=== PATIENT | female | born 1935 | race Caucasian/White ===

== ENCOUNTER → 2022-04-25 13:08 | Outpatient (BNVA) | payer MEDICARE, SELFPAY | PROVIDERS: PCP Physician Assistant Medical; Visit Provider Nurse Practitioner Family | DX: H91.90 Unspecified hearing loss, unspecified ear (principal); R41.89 Other symptoms and signs involving cognitive functions and awareness; R41.3 Other amnesia | CPT/HCPCS: 99202 ==

== ENCOUNTER → 2022-07-25 14:06 | Outpatient (BNVA) | payer MEDICARE, SELFPAY | PROVIDERS: PCP Physician Assistant Medical; Visit Provider Nurse Practitioner Family | DX: R41.81 Age-related cognitive decline (principal); R41.3 Other amnesia; H91.90 Unspecified hearing loss, unspecified ear | CPT/HCPCS: 99212 ==

== ENCOUNTER 2022-11-14 11:06 | Outpatient (AMB) | payer MEDICARE, SELFPAY ==
--- NOTE | 2022-11-14 11:07 | A.OFFVIS_ITS ---
Intake Vital Signs 11/14/22 11:21 Weight 158 lb 6 oz BP 118/58 L Blood Pressure Location Lt brachial Position Sitting Pulse 65 Pulse Source Pulse Oximeter Pulse Oximetry (%) 98 Oxygen Delivery Method Room Air Intake Visit Reasons: medication follow up - LVM Intake Note: Medication follow up [employer] [place] Required: No Allergies No Known Allergies Allergy (Verified 11/14/22 11:09) HPI HPI Comments History of Present Illness Details 87 y/o female patient presents with her son for follow up of cognitive impairment and hearing loss. Pt's son reports that patient has been sleeping a lot, about 16-18 hours a day. Pt's son thinks that she has been sleep more since memantine started and holding memantine since the last . Pt's son reports that patient wakes up frequently at night. Pt has appointment to fit for hearing aids next week. She is not physically active during time, very anxious for any outside activity. She is very weak and need assistance to walk, uses walker. Memory is still same, forgetful. Denies wondering or behavior problem. [facility] Surgical History History of cataract surgery Family History Family/Other HTN (hypertension) Family/Other Breast cancer HTN (hypertension) Thyroid disease Family/Other Uterine cancer Father Throat cancer Social History (Updated 11/14/22 @ 11:21 by Maude Boyce [facility]) Alcohol intake: never Patient Tobacco Use Status: Never used Tobacco Review of Systems Const All systems reviewed & are unremarkable except as noted in HPI and below Physical Exam Vital Signs: Last Vital Signs Pulse 65 11/14/22 11:21 BP 118/58 L 11/14/22 11:21 Pulse Ox 98 11/14/22 11:21 Oxygen Delivery Method Room Air 11/14/22 11:21 Const General: alert Nutritional Appearance: average body habitus Orientation/consciousness: patient oriented x3 HEENT Other: Hearing loss and uses hearing aids bilaterally. Neck Neck: Yes full ROM and Yes supple Resp Effort & Inspection: normal respiratory effort and able to speak in complete sentences Neuro General: patient oriented x3 Cranial nerves: Yes Bilaterally intact EOM present, Yes Midline tongue present, Yes Symmetric palate elevation present, Yes Ability to bilaterally rotate head present and Yes Ability to bilaterally elevate shoulders present Motor exam (neuro): 5/5 motor strength present throughout and Pronator motor function not present Psych Appearance: grossly normal Mental Status: mental status grossly normal Speech and movement: Clear speech present Affect: normal affect Attitude: cooperative Assessment & Plan Assessment & Plan (1) Weakness of lower extremity: Code(s): R29.898 - Other symptoms and signs involving the musculoskeletal system (2) Excessive daytime sleepiness: Code(s): G47.19 - Other hypersomnia (3) Memory loss: Code(s): R41.3 - Other amnesia (4) Cognitive decline: Code(s): R41.89 - Other symptoms and signs involving cognitive functions and awareness Plan Advised patient to undergo home sleep study to assess sleep apnea. Will f/u of sleep study for appropriate treatment options. Advised patient to do physical therapy for bilateral legs strength and gait tra ining. Continue to hold memantine and monitoring daytime sleepiness. Encouraged patient to increase daytime physical and cognitive activities. Orders: Orders RT home sleep study 11/14/22 R41.3 - Other amnesia, R41.89 - Other symptoms and signs involving cognitive functions and awareness, G47.19 - Other hypersomnia PT Evaluation and Treatment 11/14/22 R29.898 - Other symptoms and signs involving the musculoskeletal system Coding Level of Care Code Est Pt Level 4 (82902) Diagnoses Weakness of lower extremity R29.898 Excessive daytime sleepiness G47.19 Memory loss R41.3 Cognitive decline R41.89
[2022-11-14 11:21] VITALS: BP 118/58; PULSE 65; O2SAT 98
== END 2022-11-14 11:51 | disposition home or self-care (01) ==
PROVIDERS: PCP Physician Assistant Medical; Visit Provider Nurse Practitioner Family
DX: R29.898 Other symptoms and signs involving the musculoskeletal system (principal); G47.19 Other hypersomnia; R41.3 Other amnesia; R41.89 Other symptoms and signs involving cognitive functions and awareness
CPT/HCPCS: 99214

== ENCOUNTER → 2022-11-14 11:06 | Outpatient (BNVA) | payer MEDICARE, SELFPAY | PROVIDERS: PCP Physician Assistant Medical; Visit Provider Nurse Practitioner Family | DX: G47.19 Other hypersomnia (principal); R41.3 Other amnesia; R41.89 Other symptoms and signs involving cognitive functions and awareness; R29.898 Other symptoms and signs involving the musculoskeletal system | CPT/HCPCS: 99212 ==

== ENCOUNTER 2023-02-20 14:29 | Outpatient (AMB) | payer MEDICARE, SELFPAY ==
[2023-02-20 14:31] VITALS: BP 118/82; PULSE 66; O2SAT 98; BMI 27.4
--- NOTE | 2023-02-20 14:31 | A.OFFVIS_ITS ---
Intake Vital Signs 02/20/23 14:31 Height 5 ft 4 in Weight 159 lb 6 oz BMI 27.4 BP 118/82 Blood Pressure Location Lt brachial Position Sitting Pulse 66 Pulse Source Pulse Oximeter Pulse Oximetry (%) 98 Oxygen Delivery Method Room Air Intake Visit Reasons: medication follow up-LVM Intake Note: Pt presents to the office today for a medication follow up. Allergies No Known Allergies Allergy (Verified 02/20/23 14:35) HPI HPI Comments History of Present Illness Details 88 y/o female patient presents with her son for follow up of cognitive impairment and hearing loss. Pt's son reports that patient had staring episode and went to ER on Dec,. She had Covid and admitted hospital for a week. She was in rehab until end of December, had OT, PT and ST. Pt's son states that patient's cognitive function has greatly improved after PT, OT and ST. She still has home therapy once a week. She had new hearing aids, and she is more alert and reactive. Pt tried memantine but it caused her very sleepy and not tolerated well. She stop taking memantine and she is more alert and less sleepy during daytime. However, she still has disrupted and restless night sleep. Pt's son reports that patient wakes up frequently at night to go to bathroom. She takes a nap after breakfast, for an hour. Home sleep study ordered, but done yet. Denies wondering or behavior problem. [facility] Surgical History History of cataract surgery Family History Family/Other HTN (hypertension) Family/Other Breast cancer HTN (hypertension) Thyroid disease Family/Other Uterine cancer Father Throat cancer Social History Alcohol intake: never Patient Tobacco Use Status: Never used Tobacco Review of Systems Const All systems reviewed & are unremarkable except as noted in HPI and below Physical Exam Vital Signs: Last Vital Signs Pulse 66 02/20/23 14:31 BP 118/82 02/20/23 14:31 Pulse Ox 98 02/20/23 14:31 Oxygen Delivery Method Room Air 02/20/23 14:31 BMI result Body Mass Index 27.4 Const General: alert Nutritional Appearance: average body habitus Orientation/consciousness: patient oriented x3 HEENT Other: Hearing loss and uses hearing aids bilaterally. Neck Neck: Yes full ROM and Yes supple Resp Effort & Inspection: normal respiratory effort and able to speak in complete sentences Neuro General: patient oriented x3 Cranial nerves: Yes Bilaterally intact EOM present, Yes Midline tongue present, Yes Symmetric palate elevation present, Yes Ability to bilaterally rotate head present and Yes Ability to bilaterally elevate shoulders present Motor exam (neuro): 5/5 motor strength present throughout and Pronator motor function not present Psych Appearance: grossly normal Mental Status: mental status grossly normal Speech and movement: Clear speech present Affect: normal affect Attitude: cooperative Assessment & Plan Assessment & Plan (1) Excessive daytime sleepiness: Code(s): G47.19 - Other hypersomnia (2) Memory loss: Code(s): R41.3 - Other amnesia (3) Cognitive decline: Code(s): R41.89 - Other symptoms and signs involving cognitive functions and awareness Plan Advised patient to undergo home sleep study to assess sleep apnea. Will f/u of sleep study for appropriate treatment options. Continue to do home PT, OT and ST. Encouraged patient to increase daytime physical and cognitive activities. Coding Level of Care Code Est Pt Level 4 (28672) Diagnoses Excessive daytime sleepiness G47.19 Memory loss R41.3 Cognitive decline R41.89
== END 2023-02-20 15:10 | disposition home or self-care (01) ==
PROVIDERS: PCP Physician Assistant Medical; Visit Provider Nurse Practitioner Family
DX: G47.19 Other hypersomnia (principal); R41.3 Other amnesia; R41.89 Other symptoms and signs involving cognitive functions and awareness
CPT/HCPCS: 99214

== ENCOUNTER → 2023-02-20 14:29 | Outpatient (BNVA) | payer MEDICARE, SELFPAY | PROVIDERS: PCP Physician Assistant Medical; Visit Provider Nurse Practitioner Family | DX: G47.19 Other hypersomnia (principal); R41.3 Other amnesia; R41.89 Other symptoms and signs involving cognitive functions and awareness | CPT/HCPCS: 99212 ==

== ENCOUNTER 2023-08-16 13:28 | Outpatient (AMB) | payer MEDICARE, SELFPAY ==
--- NOTE | 2023-08-16 13:45 | A.OFFVIS_ITS ---
Vital Signs 08/16/23 13:56 Height 5 ft 4 in Weight 160 lb 6 oz BMI 27.5 BP 118/80 Blood Pressure Location Lt brachial Position Sitting Pulse 79 Pulse Source Pulse Oximeter Pulse Oximetry (%) 96 Oxygen Delivery Method Room Air Intake Visit Reasons: Hospital Follow up - Confirmed Intake Note: Patient presents for f/u. Looking to see if pt. has Parkinson s or Dementia. Allergies No Known Allergies Allergy (Verified 08/16/23 13:53) Medication List - Last Reconciled 08/16/23 by Fide Hughes MD amlodipine 10 mg PO DAILY ascorbate calcium (vitamin C) 500 mg PO DAILY aspirin (Adult Low Dose Aspirin) 81 mg PO DAILY cholecalciferol (vitamin D3) 25 mcg PO DAILY cyanocobalamin (vitamin B-12) 500 mcg PO DAILY gabapentin 100 mg PO ONCE losartan mg PO melatonin 1 mg PO BEDTIME PRN metoprolol succinate ER 50 mg PO DAILY olanzapine 2.5 mg PO BEDTIME omega-3 fatty acids 1,000 mg PO DAILY pantoprazole 40 mg PO DAILY simvastatin 5 mg PO DAILY venlafaxine ER 150 mg PO DAILY vitamin B complex 1 tab PO DAILY HPI Comments Details: 88 y/o female patient with Dementia and catatonic depression comes for follow up.s he was recently admitted at [facility] for increased hallucinations - all her labs were unremarakable . Her psychiatrist Dr. Joseph decreased her olanzapine 2.5mg qd Her cognition is worse and is more dependant on her ADLS. Pt tried memantine but it caused her very sleepy and not tolerated well. [facility] Medical History Hyperlipidemia HTN (hypertension) Anxiety CVA (cerebral vascular accident) Major depressive disorder, recurrent, with catatonic features Dementia Surgical History History of cataract surgery Family History Family/Other HTN (hypertension) Family/Other Breast cancer HTN (hypertension) Thyroid disease Family/Other Uterine cancer Father Throat cancer Social History Alcohol intake: never Patient Tobacco Use Status: Never used Tobacco Review of Systems Neuro Reports confusion Psych Reports confusion Physical Exam Vital Signs: Last Vital Signs Pulse 79 08/16/23 13:56 BP 118/80 08/16/23 13:56 Pulse Ox 96 08/16/23 13:56 Oxygen Delivery Method Room Air 08/16/23 13:56 BMI result Body Mass Index 27.5 Const General: cooperative, alert and confusion Nutritional Appearance: average body habitus Orientation/consciousness: confusion HEENT Other: Hearing loss and uses hearing aids bilaterally. Neck Neck: Yes full ROM and Yes supple Resp Effort & Inspection: normal respiratory effort and able to speak in complete sentences Neuro Other: No tremors Mild decreased facial expression and blink General: confusion Cranial nerves: Yes Bilaterally intact EOM present, Yes Midline tongue present, Yes Symmetric palate elevation present, Yes Ability to bilaterally rotate head present and Yes Ability to bilaterally elevate shoulders present Motor exam (neuro): 5/5 motor strength present throughout, Pronator motor function not present and Normal motor muscle tone present throughout Psych Appearance: grossly normal Speech and movement: Clear speech present Affect: Blunted affect present Attitude: cooperative Orientation What is the (year) (season) (date) (day) (month)?: year, season, date and month Score Score: 4 Assessment & Plan Assessment & Plan (1) Dementia: Comment: mixed with hallucinations- related to mood and vascular Code(s): F03.90 - Unspecified dementia, unspecified severity, without behavioral disturbance, psychotic disturbance, mood disturbance, and anxiety Category: Medical Plan F/u Dr. Joseph for her depression and hallucinations continue same meds will consider adding donepezil Continue [facility]NA servcies Coding Level of Care Code Est Pt Level 4 (44603) Diagnoses Dementia F03.90
[2023-08-16 13:56] VITALS: BP 118/80; PULSE 79; O2SAT 96; BMI 27.5
== END 2023-08-16 14:40 | disposition home or self-care (01) ==
PROVIDERS: PCP Physician Assistant Medical; Visit Provider Psychiatry & Neurology Neurology
DX: F03.90 Unspecified dementia, unspecified severity, without behavioral disturbance, psychotic disturbance, mood disturbance, and anxiety (principal)
CPT/HCPCS: 99214

== ENCOUNTER → 2023-08-16 13:28 | Outpatient (BNVA) | payer MEDICARE, SELFPAY | PROVIDERS: PCP Physician Assistant Medical; Visit Provider Psychiatry & Neurology Neurology | DX: F03.90 Unspecified dementia, unspecified severity, without behavioral disturbance, psychotic disturbance, mood disturbance, and anxiety (principal) | CPT/HCPCS: 99212 ==

== ENCOUNTER 2024-01-21 14:43 | Outpatient (AMB) | payer MEDICARE, SELFPAY ==
[2024-01-21 14:43] VITALS: BP 115/62; PULSE 62; O2SAT 96; BMI 27.5
--- NOTE | 2024-01-21 14:43 | MHC.OFFVIS ---
Vital Signs 01/21/24 14:43 Height 5 ft 4 in Weight 160 lb BMI 27.5 BP 115/62 Blood Pressure Location Rt brachial Position Sitting Pulse 62 Pulse Source Pulse Oximeter Pulse Oximetry (%) 96 Oxygen Delivery Method Room Air Intake Visit Reasons: Follow up [employer] Required: No Accompanied by: Child Allergies No Known Allergies Allergy (Verified 01/21/24 14:50) Medication List - Last Reconciled 01/21/24 by Fide Hughes MD amlodipine 10 mg PO DAILY ascorbate calcium (vitamin C) 500 mg PO DAILY aspirin (Adult Low Dose Aspirin) 81 mg PO DAILY cholecalciferol (vitamin D3) 25 mcg PO DAILY cyanocobalamin (vitamin B-12) 500 mcg PO DAILY gabapentin 300 mg (3 x 100 mg) PO .qhs losartan mg PO melatonin 1 mg PO BEDTIME PRN metoprolol succinate ER 50 mg PO DAILY olanzapine 2.5 mg PO BEDTIME omega-3 fatty acids 1,000 mg PO DAILY pantoprazole 40 mg PO DAILY simvastatin 5 mg PO DAILY venlafaxine ER 150 mg PO DAILY vitamin B complex 1 tab PO DAILY Do you need a note to return to daycare/school/sports/work: No HPI Comments Details: 88 y/o female patient with Dementia and catatonic depression comes for follow up.she had another admission in Aug 2023 and went to ER 3 weeks ago.Both the ER visits were freezing episodes, unresponsive to commands. she had 2 episodes of generalized body movements last week when she was sleepy.she was confused and not responding. Her cognition has worsened and is confused with people. she has more hallucinations, dependant on all actvities of daily living. Pt tried memantine but it caused her very sleepy and not tolerated well. she did good after her discharge from her admission in August 2023. she follows up with [facility], [facility] Medical History (Updated 01/21/24 @ 15:30 by Fide Hughes MD) Myoclonus Episode of shaking Hyperlipidemia HTN (hypertension) Anxiety CVA (cerebral vascular accident) Major depressive disorder, recurrent, with catatonic features Dementia Surgical History History of cataract surgery Family History Family/Other HTN (hypertension) Family/Other Breast cancer HTN (hypertension) Thyroid disease Family/Other Uterine cancer Father Throat cancer Social History Alcohol intake: never Patient Tobacco Use Status: Never used Tobacco Review of Systems Neuro Reports confusion Psych Reports confusion Physical Exam Vital Signs: Last Vital Signs Pulse 62 01/21/24 14:43 BP 115/62 01/21/24 14:43 Pulse Ox 96 01/21/24 14:43 Oxygen Delivery Method Room Air 01/21/24 14:43 BMI result Body Mass Index 27.5 Const General: cooperative, alert and confusion Nutritional Appearance: average body habitus Orientation/consciousness: confusion HEENT Other: Hearing loss and uses hearing aids bilaterally. Neck Neck: Yes full ROM and Yes supple Resp Effort & Inspection: normal respiratory effort and able to speak in complete sentences Neuro Other: No tremors Mild decreased facial expression and blink General: confusion Cranial nerves: Yes Bilaterally intact EOM present, Yes Midline tongue present, Yes Symmetric palate elevation present, Yes Ability to bilaterally rotate head present and Yes Ability to bilaterally elevate shoulders present Motor exam (neuro): 5/5 motor strength present throughout, Pronator motor function not present and Normal motor muscle tone present throughout Psych Appearance: grossly normal Speech and movement: Clear speech present Affect: Blunted affect present Attitude: cooperative Assessment & Plan Assessment & Plan (1) Dementia: Comment: mixed with hallucinations- related to mood and vascular Code(s): F03.90 - Unspecified dementia, unspecified severity, without behavioral disturbance, psychotic disturbance, mood disturbance, and anxiety Category: Medical Qualifiers: Dementia type: unspecified type Dementia severity: severe Dementia behavioral or psychological symptom: with psychotic disturbance Qualified Code(s): F03.C2 - Unspecified dementia, severe, 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 Joseph for her depression and hallucinations EEG Increase gabapentin 300mg qhs for abnormal movements - ? myoclonus ? seizures Refer to [facility] for Palliative care Orders: Orders EEG electroencephalogram Today R25.1 - Tremor, unspecified [facility]errals [facility] Referral F03.90 - Unspecified dementia, unspecified severity, without behavioral disturbance, psychotic disturbance, mood disturbance, and anxiety Medications: Changed From gabapentin 100 mg PO ONCE To gabapentin 300 mg (3 x 100 mg) PO .qhs 90 caps 0RF Coding Level of Care Code Est Pt Level 4 (76398) Complex EM visit Add On G2211 Diagnoses Severe dementia with psychotic disturbance, unspecified dementia type F03.C2 Dementia type: unspecified type Dementia severity: severe Dementia behavioral or psychological symptom: with psychotic disturbance Myoclonus G25.3 Comment CC notes to Dr. Joseph
== END 2024-01-21 15:29 | disposition home or self-care (01) ==
LOC: HO.HSMS 14:43
PROVIDERS: Visit Provider Psychiatry & Neurology Neurology
DX: F03.C2 Unspecified dementia, severe, with psychotic disturbance (principal); G25.3 Myoclonus
CPT/HCPCS: 99214; G2211

== ENCOUNTER → 2024-01-21 14:43 | Outpatient (BNVA) | payer MEDICARE, SELFPAY | PROVIDERS: Visit Provider Psychiatry & Neurology Neurology | DX: F03.C2 Unspecified dementia, severe, with psychotic disturbance (principal); G25.3 Myoclonus | CPT/HCPCS: 99212 ==

== ENCOUNTER → 2024-02-27 15:34 | Outpatient (BNVA) | payer MEDICARE, SELFPAY | PROVIDERS: PCP Internal Medicine; Visit Provider Psychiatry & Neurology Neurology | DX: F03.90 Unspecified dementia, unspecified severity, without behavioral disturbance, psychotic disturbance, mood disturbance, and anxiety (principal) ==

== ENCOUNTER 2024-02-27 15:36 | Outpatient (AMB) | payer MEDICARE, SELFPAY ==
--- NOTE | 2024-02-27 15:34 | MHC.OFFVIS ---
Intake Visit Reasons: follow up ([phone]) Intake Note: Patient presents for follow up Allergies No Known Allergies Allergy (Verified 02/27/24 15:36) HPI Comments Details: 89 y/o female patient with Dementia and catatonic depression calls for follow up.Her Dylon helps with history today. Her psychiatrist ( Dr. Joseph) reduced olanzepine dose but her mood worsened so it was increased again.she is on gabapentin which helps with her abnormal twitching but she is sleeping a lot. Her cognition is good as per her .she gonzales [employer] aid eto help with her ADLs. Pt tried memantine but it caused her very sleepy and not tolerated well. [facility] Medical History Myoclonus Episode of shaking Hyperlipidemia HTN (hypertension) Anxiety CVA (cerebral vascular accident) Major depressive disorder, recurrent, with catatonic features Dementia Surgical History History of cataract surgery Family History Family/Other HTN (hypertension) Family/Other Breast cancer HTN (hypertension) Thyroid disease Family/Other Uterine cancer Father Throat cancer Social History Alcohol intake: never Patient Tobacco Use Status: Never used Tobacco Physical Exam Neuro Other: Alert speech - mild slurring Mild confusion Telehealth Telehealth Telehealth Platform: Telephone Location of provider rendering services: practice address Location of patient: address on file Patient Identification confirmed using: Name, : Yes Telehealth method: voice only Patient verbally consented to treatment: Yes Patient verbally consented to billing insurance company: Yes Patient informed of any privacy concerns related to visit: Yes Minutes spent on Phone/Video with Pt.: 16 Assessment & Plan Assessment & Plan (1) Dementia: Comment: mixed with hallucinations- related to mood and vascular Code(s): F03.90 - Unspecified dementia, unspecified severity, without behavioral disturbance, psychotic disturbance, mood disturbance, and anxiety Category: Medical Qualifiers: Dementia type: unspecified type Dementia severity: severe Dementia behavioral or psychological symptom: with psychotic disturbance Qualified Code(s): F03.C2 - Unspecified dementia, severe, 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 Joseph for her depression and hallucinations Continue gabapentin 300mg qhs for abnormal movements - ? myoclonus ? seizures [facility]NA for Palliative care F/u as needed Coding Level of Care Code Tele Est Pt Level 4 (42010) Diagnoses Severe dementia with psychotic disturbance, unspecified dementia type F03.C2 Dementia type: unspecified type Dementia severity: severe Dementia behavioral or psychological symptom: with psychotic disturbance Myoclonus G25.3
--- OUTSIDE RECORDS SUMMARY | 2024-03-04 04:20 | XMS_ITS | Clinical Summary ---
Author Organization Unknown Care Team Providers Care Log Turner Name Role Phone MINERVA KERN, COLUMBA Unavailable Unav ailable WHITE RN, YENIFER Unavailable Unavailable YVETTE EYELET MAKER, NEGIN Unavailable Unavailginna CHANDRA PT, PATRICIA Unavailable Unavailable GARCIA [employer], [facility] Unavailable Unavailable [place]AN OT, LEONARDO Unavailable Unavailable CONDINO DIANE/CUEVAS, KYREE Unavailable Unav ailable Payers Payer Name Policy Type Policy Number Effective Date Expira tion Date MEDICARE.NGS.PDGM [id number] Problems Condition Name Condition Details Condition Category Status Onset Date Resolution Date Last Treatment Date Treating Clinician Comments HYPERTENSIVE CHRONIC KIDNEY DISEASE W STG 1-4/UNSP CHR KDNY Active 10-19 00:00: 00 CHRONIC KIDNEY DISEASE, STAGE 3B Active 10-19 00:00: 00 PARKINSON'S DIS W/O DYSKINESIA, 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 10-19 00:00: 00 DEM IN OTHER DIS CLASSD ELSWHR, UNSP SEVERITY, WITH ANXIETY Active 10-19 00:00: 00 DEM IN OTH DIS CLASSD ELSWHR, UNSP SEV, WITH OTH BEH DISTRB Active 10-19 00:00: 00 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 10-19 00:00: 00 VASCULAR DEMENTIA, UNSPECIFIED SEVERITY, WITH ANXIETY Active 10-19 00:00: 00 VASCULAR DEMENTIA, UNSP SEVERITY, WITH OTHER BEH DISTURB Active 10-19 00:00: 00 OBSTRUCTIVE SLEEP APNEA (ADULT) (PEDIATRIC) Active 10-19 00:00: 00 HYPERSOMNIA, UNSPECIFIED Active 10-19 00:00: 00 METABOLIC ENCEPHALOPAT HY Active 10-14 00:00: 00 ATHSCL HEART DISEASE OF [place] CORONARY ARTERY W/O ANG PCTRS Active 10-19 00:00: 00 POLYNEUROPAT HY, UNSPECIFIED Active 10-19 00:00: 00 ANEMIA IN CHRONIC KIDNEY DISEASE Active 10-19 00:00: 00 AGE-RELATED OSTEOPOROSIS W/O CURRENT PATHOLOGICAL FRACTURE Active 10-19 00:00: 00 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 10-19 00:00: 00 PERIPHERAL VASCULAR DISEASE, UNSPECIFIED Active 10-19 00:00: 00 CONSTIPATION , UNSPECIFIED Active 10-19 00:00: 00 ACUTE KIDNEY FAILURE, UNSPECIFIED Active 10-19 00:00: 00 HYPERLIPIDEM IA, UNSPECIFIED Active 10-19 00:00: 00 GASTRO-ESOPH AGEAL REFLUX DISEASE WITHOUT ESOPHAGITIS Active 10-19 00:00: 00 VITAMIN B12 DEFICIENCY ANEMIA, UNSPECIFIED Active 10-19 00:00: 00 MENIERE'S DISEASE, UNSPECIFIED EAR Active 10-19 00:00: 00 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 Active 10-19 00:00: 00 PERSONAL HISTORY OF OTHER MALIGNANT NEOPLASM OF SKIN Active 10-19 00:00: 00 Allergies, Adverse Reactions, Alerts Allergy Name Allergy Type Status Severity Reaction(s) Onset Date Inactive Date Treating Clinician Comments ARIPIPRAZOLE Propensity to adverse reactions Active 10-14 13:43: 10 HYDROCHLOROT HIAZIDE Propensity to adverse reactions Active 10-14 13:43: 20 VALPROIC ACID Propensity to adverse reactions Active 10-14 13:43: 27 SULFA (SULFONAMIDE S) Propensity to adverse reactions Active 10-14 13:43: 32 Medications Ordered Medication Name Filled Medication Name Start Date Stop Date Current Medication? Ordering Clinician Indication Dosage Frequency Signature (SIG) Comments Components metoprolol succinate ER 50 mg tablet,exte nded release 24 hr 2022-03 0-11 00:00: 00 06-12 23:59 :00 No [id number] BETA ANNA Per instruc tions EVERY Per instructio ns EVERY (route: oral) Med Classific ation: Cardiovas cular Therapy Agents amlodipine 10 mg tablet 2022-03 00:00: 00 06-12 23:59 :00 No [id number] HTN 1 tablet DAILY 1 tablet DAILY (route: oral) Med Classific ation: Cardiovas cular Therapy Agents ascorbic acid (vitamin C) 500 mg capsule 2022-03 00:00: 00 06-12 23:59 :00 No [id number] VITAMIN 1 capsule DAILY 1 capsule DAILY (route: oral) Med Classific ation: Electroly te Balance-N utritiona l Products aspirin 81 mg tablet,aydee yed release 2022-03 00:00: 00 06-12 23:59 :00 No [id number] ANTIPLATELE T 1 tablet DAILY 1 tablet DAILY (route: oral) Med Classific ation: Hematolog ical Agents Colace 100 mg capsule 2022-03 00:00: 00 06-12 23:59 :00 No [id number] CONSTIPATIO N 1 capsule DAILY 1 capsule DAILY (route: oral) Med Classific ation: Gastroint estinal Therapy Agents gabapentin 100 mg capsule 2022-03 00:00: 00 06-12 23:59 :00 No [id number] PAIN 1 capsule DAILY 1 capsule DAILY (route: oral) Med Classific ation: Central Nervous System Agents losartan 25 mg tablet 2022-03 00:00: 00 06-12 23:59 :00 No [id number] HTN 3 tablet DAILY 3 tablet DAILY (route: oral) Med Classific ation: Cardiovas cular Therapy Agents multivitami n tablet 2022-03 00:00: 00 06-12 23:59 :00 No [id number] VITAMIN 1 tablet DAILY 1 tablet DAILY (route: oral) Med Classific ation: Electroly te Balance-N utritiona l Products olanzapine 2.5 mg tablet 2022-03 00:00: 00 06-12 23:59 :00 No [id number] BEHAVIOR 1 tablet DAILY 1 tablet DAILY (route: oral) Med Classific ation: Central Nervous System Agents pantoprazol e 40 mg tablet,aydee yed release 2022-03 00:00: 00 06-12 23:59 :00 No [id number] GERD 1 tablet DAILY 1 tablet DAILY (route: oral) Med Classific ation: Gastroint estinal Therapy Agents simvastatin 10 mg tablet 2022-03 00:00: 00 06-12 23:59 :00 No [id number] HLD 1 tablet BEDTIME 1 tablet BEDTIME (route: oral) Med Classific ation: Cardiovas cular Therapy Agents venlafaxine ER 150 mg capsule,ext ended release 24 hr 2022-03 00:00: 00 06-12 23:59 :00 No [id number] NEUROPATHY 1 capsule DAILY 1 capsule DAILY (route: oral) Med Classific ation: Central Nervous System Agents Vitamin D3 25 mcg (1,000 unit) capsule 2022-03 00:00: 00 06-12 23:59 :00 No [id number] VITAMIN 1 capsule DAILY 1 capsule DAILY (route: oral) Med Classific ation: Electroly te Balance-N utritiona l Products simvastatin 10 mg tablet 2- 00:00: 00 Yes [id number] HLD 1 tablet DAILY 1 tablet DAILY (route: oral) Med Classific ation: Cardiovas cular Therapy Agents amlodipine 5 mg tablet 2- 00:00: 00 Yes [id number] HTN 2 tablet DAILY 2 tablet DAILY (route: oral) Med Classific ation: Cardiovas cular Therapy Agents acetaminoph en 325 mg tablet - 00:00: 00 Yes [id number] PAIN OR TEMP >100 2 tablet EVERY 4 HOURS 2 tablet EVERY 4 HOURS (route: oral) Med Classific ation: Analgesic , Anti-infl ammatory or Antipyret ic ascorbic acid (vitamin C) 500 mg tablet 06-17 00:00: 00 Yes [id number] SUPPLEMENT 1 tablet DAILY 1 tablet DAILY (route: oral) Med Classific ation: Electroly te Balance-N utritiona l Products Cris Low Dose Aspirin 81 mg tablet,aydee yed release 06-17 00:00: 00 Yes [id number] HEART HEALTH 1 tablet DAILY 1 tablet DAILY (route: oral) Med Classific ation: Hematolog ical Agents cholecalcif eric (vitamin D3) 25 mcg (1,000 unit) capsule 06-17 00:00: 00 Yes [id number] SUPPLEMENT 1 capsule DAILY 1 capsule DAILY (route: oral) Med Classific ation: Electroly te Balance-N utritiona l Products docusate sodium 100 mg tablet 06-17 00:00: 00 Yes [id number] CONSTIPATIO N 1 tablet DAILY 1 tablet DAILY (route: oral) Med Classific ation: Gastroint estinal Therapy Agents gabapentin 100 mg capsule 06-17 00:00: 00 Yes [id number] PAIN 1 capsule DAILY 1 capsule DAILY (route: oral) Med Classific ation: Central Nervous System Agents isosorbide mononitrate ER 60 mg tablet,exte nded release 24 hr 06-17 00:00: 00 Yes [id number] HTN 1 tablet DAILY 1 tablet DAILY (route: oral) Med Classific ation: Cardiovas cular Therapy Agents metoprolol succinate ER 25 mg tablet,exte nded release 24 hr 06-17 00:00: 00 10-16 23:59 :00 No [id number] HTN 1 tablet DAILY 1 tablet DAILY (route: oral) Med Classific ation: Cardiovas cular Therapy Agents olanzapine 2.5 mg tablet 06-17 00:00: 00 Yes [id number] ANXIETY 1 tablet DAILY 1 tablet DAILY (route: oral) Med Classific ation: Central Nervous System Agents omega-3 fatty acids 1,000 mg capsule 06-17 00:00: 00 Yes [id number] SUPPLEMENT 1 capsule DAILY 1 capsule DAILY (route: oral) Med Classific ation: Cardiovas cular Therapy Agents pantoprazol e 40 mg tablet,aydee yed release 06-17 00:00: 00 10-16 23:59 :00 No [id number] INDIGESTION 1 tablet DAILY 1 tablet DAILY (route: oral) Med Classific ation: Gastroint estinal Therapy Agents venlafaxine ER 150 mg capsule,ext ended release 24 hr 06-17 00:00: 00 Yes [id number] DEPRESSION 1 capsule DAILY 1 capsule DAILY (route: oral) Med Classific ation: Central Nervous System Agents metoprolol succinate ER 50 mg tablet,exte nded release 24 hr 10-13 00:00: 00 Yes [id number] HTN 1 tablet DAILY 1 tablet DAILY (route: oral) Med Classific ation: Cardiovas cular Therapy Agents pantoprazol e 40 mg tablet,aydee yed release 10-13 00:00: 00 Yes [id number] GERD 1 tablet DAILY 1 tablet DAILY (route: oral) Med Classific ation: Gastroint estinal Therapy Agents isosorbide mononitrate ER 60 mg tablet,exte nded release 24 hr 09-15 00:00: 00 10-16 23:59 :00 No [id number] ANGINA Per instruc tions EVERY DAY Per instructio ns EVERY DAY (route: oral) Med Classific ation: Cardiovas cular Therapy Agents losartan 25 mg tablet 10-19 00:00: 00 Yes [id number] HTN 1 tablet DAILY 1 tablet DAILY (route: oral) Med Classific ation: Cardiovas cular Therapy Agents Vital Signs Vital Name Observation Time Observation Value Commen ts Temperature 2023-12-17 09:56:00.000 97.4 [degF] Temperature 2023-12-04 11:22:00.000 97.1 [degF] Temperature 2023-11-22 11:21:00.000 97 [degF] Temperature 2023-11-20 13:24:00.000 97.5 [degF] Temperature 2023-11-14 11:00:00.000 96.9 [degF] Temperature 2023-11-12 12:12:00.000 97.2 [degF] Temperature 2023-11-11 09:50:00.000 97.2 [degF] Temperature 2023-11-07 11:58:00.000 97.1 [degF] Temperature 2023-11-05 12:59:00.000 97.9 [degF] Temperature 2023-10-30 09:59:00.000 97.5 [degF] Temperature 2023-10-28 12:00:00.000 97.3 [degF] Temperature 2023-10-28 10:30:00.000 97.2 [degF] Temperature 2023-10-23 14:59:00.000 97.1 [degF] Temperature 2023-10-22 17:05:00.000 97.4 [degF] Temperature 2023-10-22 10:10:00.000 97.5 [degF] Temperature 2023-10-20 10:38:00.000 97.2 [degF] BMI (%) 2023-10-20 10:29:08.000 28 kg/m2 Height 2023-10-20 10:29:03.000 63 [in_us] Pulse 2023-12-17 09:56:00.000 78 /min Pulse 2023-12-04 11:22:00.000 67 /min Pulse 2023-11-22 11:21:00.000 96 /min Pulse 2023-11-20 13:24:00.000 70 /min Pulse 2023-11-14 11:00:00.000 69 /min Pulse 2023-11-12 12:12:00.000 80 /min Pulse 2023-11-11 09:50:00.000 80 /min Pulse 2023-11-07 11:58:00.000 75 /min Pulse 2023-11-05 12:59:00.000 80 /min Pulse 2023-10-30 09:59:00.000 80 /min Pulse 2023-10-28 12:00:00.000 70 /min Pulse 2023-10-28 10:30:00.000 74 /min Pulse 2023-10-23 14:59:00.000 68 /min Pulse 2023-10-22 17:05:00.000 77 /min Pulse 2023-10-22 10:10:00.000 80 /min Pulse 2023-10-20 10:38:00.000 82 /min O2 Saturation (%) 2023-12-17 09:56:00.000 97 % O2 Saturation (%) 2023-12-04 11:22:00.000 97 % O2 Saturation (%) 2023-11-22 12:03:00.000 98 % O2 Saturation (%) 2023-11-22 11:21:00.000 96 % O2 Saturation (%) 2023-11-20 13:24:00.000 96 % O2 Saturation (%) 2023-11-14 11:00:00.000 96 % O2 Saturation (%) 2023-11-07 11:58:00.000 98 % O2 Saturation (%) 2023-11-05 12:59:00.000 95 % O2 Saturation (%) 2023-10-30 09:59:00.000 98 % O2 Saturation (%) 2023-10-28 12:00:00.000 96 % O2 Saturation (%) 2023-10-22 17:05:00.000 95 % O2 Saturation (%) 2023-10-22 10:10:00.000 97 % Respirations 2023-12-17 09:56:00.000 16 /min Respirations 2023-12-04 11:22:00.000 16 /min Respirations 2023-11-22 11:21:00.000 16 /min Respirations 2023-11-20 13:24:00.000 16 /min Respirations 2023-11-14 11:00:00.000 16 /min Respirations 2023-11-12 12:12:00.000 18 /min Respirations 2023-11-11 09:50:00.000 18 /min Respirations 2023-11-07 11:58:00.000 16 /min Respirations 2023-11-05 12:59:00.000 18 /min Respirations 2023-10-30 09:59:00.000 18 /min Respirations 2023-10-28 12:00:00.000 16 /min Respirations 2023-10-28 10:30:00.000 18 /min Respirations 2023-10-23 14:59:00.000 16 /min Respirations 2023-10-22 17:05:00.000 16 /min Respirations 2023-10-22 10:10:00.000 16 /min Respirations 2023-10-20 10:38:00.000 16 /min Weight (lbs) 2023-10-20 10:29:08.000 163 [lb_av] Systolic Blood Pressure 2023-12-17 09:56:00.000 110 mm [Hg] Systolic Blood Pressure 2023-12-04 11:22:00.000 110 mm [Hg] Systolic Blood Pressure 2023-11-22 11:21:00.000 120 mm [Hg] Systolic Blood Pressure 2023-11-20 13:24:00.000 140 mm [Hg] Systolic Blood Pressure 2023-11-14 11:00:00.000 110 mm [Hg] Systolic Blood Pressure 2023-11-12 12:12:00.000 102 mm [Hg] Systolic Blood Pressure 2023-11-11 09:50:00.000 110 mm [Hg] Systolic Blood Pressure 2023-11-07 11:58:00.000 110 mm [Hg] Systolic Blood Pressure 2023-11-05 12:59:00.000 120 mm [Hg] Systolic Blood Pressure 2023-10-30 09:59:00.000 130 mm [Hg] Systolic Blood Pressure 2023-10-28 12:00:00.000 120 mm [Hg] Systolic Blood Pressure 2023-10-28 10:30:00.000 126 mm [Hg] Systolic Blood Pressure 2023-10-23 14:59:00.000 120 mm [Hg] Systolic Blood Pressure 2023-10-22 17:05:00.000 139 mm [Hg] Systolic Blood Pressure 2023-10-22 10:10:00.000 140 mm [Hg] Systolic Blood Pressure 2023-10-20 10:38:00.000 118 mm [Hg] Diastolic Blood Pressure 2023-12-17 09:56:00.000 70 mm [Hg] Diastolic Blood Pressure 2023-12-04 11:22:00.000 60 mm [Hg] Diastolic Blood Pressure 2023-11-22 11:21:00.000 70 mm [Hg] Diastolic Blood Pressure 2023-11-20 13:24:00.000 70 mm [Hg] Diastolic Blood Pressure 2023-11-14 11:00:00.000 60 mm [Hg] Diastolic Blood Pressure 2023-11-12 12:12:00.000 62 mm [Hg] Diastolic Blood Pressure 2023-11-11 09:50:00.000 62 mm [Hg] Diastolic Blood Pressure 2023-11-07 11:58:00.000 78 mm [Hg] Diastolic Blood Pressure 2023-11-05 12:59:00.000 70 mm [Hg] Diastolic Blood Pressure 2023-10-30 09:59:00.000 80 mm [Hg] Diastolic Blood Pressure 2023-10-28 12:00:00.000 70 mm [Hg] Diastolic Blood Pressure 2023-10-28 10:30:00.000 62 mm [Hg] Diastolic Blood Pressure 2023-10-23 14:59:00.000 72 mm [Hg] Diastolic Blood Pressure 2023-10-22 17:05:00.000 80 mm [Hg] Diastolic Blood Pressure 2023-10-22 10:10:00.000 70 mm [Hg] Diastolic Blood Pressure 2023-10-20 10:38:00.000 64 mm [Hg] Plan of Treatment Planned Activity Planned Date Details Comments Future Scheduled Test MEDICATION MANAGEMENT; REGISTERED NURSE/LICENSED PRACTICAL NURSE TO REVIEW MEDICATIONS FOR INTERACTIONS, EFFECTIVENESS OF DRUG THERAPY, AND SIGNS/SYMPTOMS OF ADVERSE REACTIONS. MAY INSTRUCT AND REINFORCE MEDICATION TEACHING RELATED TO THE USE OF MEDICATIONS, DOSAGE, FREQUENCY, PURPOSE, SIDE EFFECTS, AND TO REPORT COMPLICATIONS. [code = MEDICATION MANAGEMENT; REGISTERED NURSE/LICENSED PRACTICAL NURSE TO REVIEW MEDICATIONS FOR INTERACTIONS, EFFECTIVENESS OF DRUG THERAPY, AND SIGNS/SYMPTOMS OF ADVERSE REACTIONS. MAY INSTRUCT AND REINFORCE MEDICATION TEACHING RELATED TO THE USE OF MEDICATIONS, DOSAGE, FREQUENCY, PURPOSE, SIDE EFFECTS, AND TO REPORT COMPLICATIONS.] Future Scheduled Test FALL REDUC TION MANAGEMENT; REGISTERED NURSE TO ASSESS AND TEACH/LICENSED PRACTICAL NURSE TO OBSERVE AND TEACH ON EDUCATION AND INTERVENTION TO IDENTIFY FALL RISK FACTORS SUCH MEDICATIONS THAT MAY CAUSE DIZZINESS, CHRONIC DISEASES, PSYCHOLOGICAL FACTORS, AND EMPOWER/EDUCATE PATIENT/CAREGIVER TO MINIMIZE FALL RISK. [code = FALL REDUCTION MANAGEMENT; REGISTERED NURSE TO ASSESS AND TEACH/LICENSED PRACTICAL NURSE TO OBSERVE AND TEACH ON EDUCATION AND INTERVENTION TO IDENTIFY FALL RISK FACTORS SUCH MEDICATIONS THAT MAY CAUSE DIZZINESS, CHRONIC DISEASES, PSYCHOLOGICAL FACTORS, AND EMPOWER/EDUCATE PATIENT/CAREGIVER TO MINIMIZE FALL RISK.] Future Scheduled Test NEUROLOGIC AL SYSTEM MANAGEMENT; REGISTERED NURSE TO ASSESS AND TEACH/LICENSED PRACTICAL NURSE TO OBSERVEAND TEACH RELATED TO ALTERED NEUROLOGICAL STATUS TO MINIMIZE COMPLICATIONS AND REDUCE HOSPITALIZATION. [code = NEUROLOGICAL SYSTEM MANAGEMENT; REGISTERED NURSE TO ASSESS AND TEACH/LICENSED PRACTICAL NURSE TO OBSERVEAND TEACH RELATED TO ALTERED NEUROLOGICAL STATUS TO MINIMIZE COMPLICATIONS AND REDUCE HOSPITALIZATION. ] Future Scheduled Test PARKINSON' S MANAGEMENT; REGISTERED NURSE/LICENSED PRACTICAL NURSE TO PROVIDE SKILLED TEACHING AND MANAGEMENT OF PARKINSON DISEASE FOR SELF-CARE. [code = PARKINSON'S MANAGEMENT; REGISTERED NURSE/LICENSED PRACTICAL NURSE TO PROVIDE SKILLED TEACHING AND MANAGEMENT OF PARKINSON DISEASE FOR SELF-CARE. ] Future Scheduled Test RN TO OBSE RVE, ASSESS, EVALUATE, AND DEVELOP AN INDIVIDUALIZED PLAN OF CARE. AGENCY MAY ACCEPT ORDERS FROM CONSULTING PHYSICIANS REGISTERED NURSETO OBSERVE AND ASSESS/LICENSED PRACTICAL NURSE TO OBSERVE FOR RISK FOR FALLS AND INSTRUCT IN FALL PREVENTION, HOME SAFETY, MEDICATION MANAGEMENT, INFECTION PREVENTION, AND NUTRITION MANAGEMENT. REGISTERED NURSE/LICENSED PRACTICAL NURSE MAY PERFORM O2 SATURATION LEVEL ON ADMISSION AND PRN FOR RESP STATUS CHANGES FOR RN TO ASSESS/EYELET MAKER TO OBSERVE PATIENT, WITH NOTIFICATION TO THE PHYSICIAN IF SATURATION IS 90% IN THE ABSENCE OF MORE SPECIFIC PARAMETERS FROM THE PHYSICIAN. AGENCY MAY PERFORM A RESUMPTION OF CARE VISIT FOLLOWING ANY HOSPITAL ADMISSION. REGISTERED NURSE/LICENSED PRACTICAL NURSE TO MONITOR CO-MORBID CONDITIONS LISTED ON THE PLAN OF CARE AND ANY NEW CONDITIONS THAT PRESENT THEMSELVES DURING THIS EPISODE TO IDENTIFY CHANGES AND INTERVENE TO MINIMIZE COMPLICATIONS. [code = RN TO OBSERVE, ASSESS, EVALUATE, AND DEVELOP AN INDIVIDUALIZED PLAN OF CARE. AGENCY MAY ACCEPT ORDERS FROM CONSULTING PHYSICIANS REGISTERED NURSETO OBSERVE AND ASSESS/LICENSED PRACTICAL NURSE TO OBSERVE FOR RISK FOR FALLS AND INSTRUCT IN FALL PREVENTION, HOME SAFETY, MEDICATION MANAGEMENT, INFECTION PREVENTION, AND NUTRITION MANAGEMENT. REGISTERED NURSE/LICENSED PRACTICAL NURSE MAY PERFORM O2 SATURATION LEVEL ON ADMISSION AND PRN FOR RESP STATUS CHANGES FOR RN TO ASSESS/EYELET MAKER TO OBSERVE PATIENT, WITH NOTIFICATION TO THE PHYSICIAN IF SATURATION IS 90% IN THE ABSENCE OF MORE SPECIFIC PARAMETERS FROM THE PHYSICIAN. AGENCY MAY PERFORM A RESUMPTION OF CARE VISIT FOLLOWING ANY HOSPITAL ADMISSION. REGISTERED NURSE/LICENSED PRACTICAL NURSE TO MONITOR CO-MORBID CONDITIONS LISTED ON THE PLAN OF CARE AND ANY NEW CONDITIONS THAT PRESENT THEMSELVES DURING THIS EPISODE TO IDENTIFY CHANGES AND INTERVENE TO MINIMIZE COMPLICATIONS.] Future Scheduled Test DEMENTIA M ANAGEMENT WITHOUT BEHAVIORAL DISTURBANCES; REGISTERED NURSE TO ASSESS AND TEACH/LICENSED PRACTICAL NURSE TO OBSERVE AND TEACH AND TO PROVIDE EDUCATION ON DEMENTIA WITHOUT BEHAVIORAL DISTURBANCES. [code = DEMENTIA MANAGEMENT WITHOUT BEHAVIORAL DISTURBANCES; REGISTERED NURSE TO ASSESS AND TEACH/LICENSED PRACTICAL NURSE TO OBSERVE AND TEACH AND TO PROVIDE EDUCATION ON DEMENTIA WITHOUT BEHAVIORAL DISTURBANCES. ] Future Scheduled Test PAIN MANAG EMENT; REGISTERED NURSE TO ASSESS AND TEACH/LICENSED PRACTICAL NURSE TO OBSERVE AND TEACH AND PROVIDE EDUCATION ON PAIN MANAGEMENT TECHNIQUES. [code = PAIN MANAGEMENT; REGISTERED NURSE TO ASSESS AND TEACH/LICENSED PRACTICAL NURSE TO OBSERVE AND TEACH AND PROVIDE EDUCATION ON PAIN MANAGEMENT TECHNIQUES.] Future Scheduled Test RISK FOR H OSPITALIZATION; REGISTERED NURSE TO ASSESS /TEACH, LICENSED PRACTICAL NURSE TO OBSERVE/TEACH PATIENT/CAREGIVER ON RISK FOR HOSPITALIZATION/EMERGENCY ROOM VISITS, TEACH SIGNS AND SYMPTOMS THAT PUT PATIENT AT RISK, WHEN TO NOTIFY NURSE/PHYSICIAN OF COMPLICATIONS/DECLINE, AND WHEN TO CALL 911. [code = RISK FOR HOSPITALIZATION; REGISTERED NURSE TO ASSESS /TEACH, LICENSED PRACTICAL NURSE TO OBSERVE/TEACH PATIENT/CAREGIVER ON RISK FOR HOSPITALIZATION/EMERGENCY ROOM VISITS, TEACH SIGNS AND SYMPTOMS THAT PUT PATIENT AT RISK, WHEN TO NOTIFY NURSE/PHYSICIAN OF COMPLICATIONS/DECLINE, AND WHEN TO CALL 911.] Future Scheduled Test CARDIOVASC ULAR SYSTEM; REGISTERED NURSE TO ASSESS /TEACH, LICENSED PRACTICAL NURSE TO OBSERVE/TEACH RELATED TO ALTERED CARDIOVASCULAR STATUS TO MINIMIZE COMPLICATIONS AND REDUCE HOSPITALIZATION. [code = CARDIOVASCULAR SYSTEM; REGISTERED NURSE TO ASSESS /TEACH, LICENSED PRACTICAL NURSE TO OBSERVE/TEACH RELATED TO ALTERED CARDIOVASCULAR STATUS TO MINIMIZE COMPLICATIONS AND REDUCE HOSPITALIZATION.] Future Scheduled Test AGENCY MAY PERFORM A RESUMPTION OF CARE VISIT FOLLOWING ANY HOSPITAL ADMISSION. OT TO EVALUATE, OBSERVE / ASSESS, AND MONITOR, DIANE TO OBSERVE AND MONITOR, PROVIDE SKILLED THERAPEUTIC INTERVENTION, ACTIVITY, EDUCATION, AND TRAINING TO ADDRESS; PERSONAL HYGIENE/GROOMING (OT/DIANE) DRESSING (OT/DIANE) ACTIVITIES OF DAILY LIVING (OT/HIM DIRECTOR) MEAL PREPARATION AND CLEANUP (OT/HIM DIRECTOR) TOILET TRANSFER (OT/HIM DIRECTOR) PERSONAL SAFETY AND EMERGENCY MANAGEMENT(OT/HIM DIRECTOR) POSTURAL CONTROL/BALANCE (OT/HIM DIRECTOR) THERAPEUTIC EXERCISE (OT/HIM DIRECTOR) ENERGY CONSERVATION/ACTIVITY DEMAND (OT/HIM DIRECTOR) OT/HIM DIRECTOR TO MONITOR AND EDUCATE ON OXYGEN SATURATION DURING ADLS/IADLS, NOTIFY PHYSICIAN AND/OR THE RN CLINICAL CUSTOMER SERVICES COORDINATOR FOR PHYSICIAN NOTIFICATION AND IF O2 SATS BELOW 90% AFTER 10 MIN OF REST. OT / HIM DIRECTOR TO IDENTIFY FALL RISK FACTORS; EDUCATE THE PATIENT/CAREGIVER ON WAYS TO REDUCE FALL RISK FACTORS AND ESTABLISH HOME EXERCISE PROGRAM TO MINIMIZE FALL RISK. MAY TEACH THE PATIENT FLOOR RECOVERY WHEN CLINICALLY APPROPRIATE. [code = AGENCY MAY PERFORM A RESUMPTION OF CARE VISIT FOLLOWING ANY HOSPITAL ADMISSION. OT TO EVALUATE, OBSERVE / ASSESS, AND MONITOR, HIM DIRECTOR TO OBSERVE AND MONITOR, PROVIDE SKILLED THERAPEUTIC INTERVENTION, ACTIVITY, EDUCATION, AND TRAINING TO ADDRESS; PERSONAL HYGIENE/GROOMING (OT/HIM DIRECTOR) DRESSING (OT/DIANE) ACTIVITIES OF DAILY LIVING (OT/DIANE) MEAL PREPARATION AND CLEANUP (OT/DIANE) TOILET TRANSFER (OT/DIANE) PERSONAL SAFETY AND EMERGENCY MANAGEMENT(OT/DIANE) POSTURAL CONTROL/BALANCE (OT/HIM DIRECTOR) THERAPEUTIC EXERCISE (OT/HIM DIRECTOR) ENERGY CONSERVATION/ACTIVITY DEMAND (OT/HIM DIRECTOR) OT/HIM DIRECTOR TO MONITOR AND EDUCATE ON OXYGEN SATURATION DURING ADLS/IADLS, NOTIFY PHYSICIAN AND/OR THE RN CLINICAL CUSTOMER SERVICES COORDINATOR FOR PHYSICIAN NOTIFICATION AND IF O2 SATS BELOW 90% AFTER 10 MIN OF REST. OT / HIM DIRECTOR TO IDENTIFY FALL RISK FACTORS; EDUCATE THE PATIENT/CAREGIVER ON WAYS TO REDUCE FALL RISK FACTORS AND ESTABLISH HOME EXERCISE PROGRAM TO MINIMIZE FALL RISK. MAY TEACH THE PATIENT FLOOR RECOVERY WHEN CLINICALLY APPROPRIATE.] Future Scheduled Test AGENCY MAY PERFORM A RESUMPTION OF CARE VISIT FOLLOWING ANY HOSPITAL ADMISSION. PT TO EVALUATE, OBSERVE / ASSESS, AND MONITOR, SECURITY CHIEF MUSEUM TO OBSERVE AND MONITOR, PROVIDE SKILLED THERAPEUTIC INTERVENTION, ACTIVITY, EDUCATION, AND TRAINING TO ADDRESS; PT/SECURITY CHIEF MUSEUM TO PROVIDE GAIT TRAINING FOR IMPROVED MOBILITY AND /OR TO NORMALIZE GAIT PATTERN NEUROMUSCULAR RE-EDUCATION / BALANCE / POSTURAL CONTROL (PT) THERAPEUTIC EXERCISES AND ESTABLISHING A HOME EXERCISE PROGRAM (PT/SECURITY CHIEF MUSEUM) PT/SECURITY CHIEF MUSEUM TO PROVIDE STAIR TRAINING BED TRANSFERS (PT/SECURITY CHIEF MUSEUM) SIT TO/FROM STAND TRANSFERS (PT/SECURITY CHIEF MUSEUM) CHAIR TRANSFERS (PT/SEC[facility]ITY [facility]) PT / [facility] TO MONITOR AND EDUCATE ON OXYGEN SATURATION DURING ADLS/IADLS, NOTIFY PHYSICIAN AND/OR THE RN CLINICAL CUSTOMER SERVICES COORDINATOR FOR PHYSICIAN NOTIFICATION AND IF O2 SATS BELOW PHYSICIAN ORDERED PARAMETERS AFTER 10 MIN OF REST PT / [facility] TO MONITOR FOR SIGNS AND SYMPTOMS OF UTI AND EDUCATE CAREGIVER TO MINIMIZE RISK OF DEVELOPING A UTI. PT/SEC[facility]ITY [facility] TO IDENTIFY FALL RISK FACTORS; EDUCATE THE PATIENT/CAREGIVER ON WAYS TO REDUCE FALL RISK FACTORS AND ESTABLISH HOME EXERCISE PROGRAM TO MINIMIZE FALL RISK. MAY TEACH THE PATIENT FLOOR RECOVERY WHEN CLINICALLY APPROPRIATE [code = AGENCY MAY PERFORM A RESUMPTION OF CARE VISIT FOLLOWING ANY HOSPITAL ADMISSION. PT TO EVALUATE, OBSERVE / ASSESS, AND MONITOR, [facility] TO OBSERVE AND MONITOR, PROVIDE SKILLED THERAPEUTIC INTERVENTION, ACTIVITY, EDUCATION, AND TRAINING TO ADDRESS; PT/SEC[facility]ITY [facility] TO PROVIDE GAIT TRAINING FOR IMPROVED MOBILITY AND /OR TO NORMALIZE GAIT PATTERN NEUROMUSCULAR RE-EDUCATION / BALANCE / POSTURAL CONTROL (PT) THERAPEUTIC EXERCISES AND ESTABLISHING A HOME EXERCISE PROGRAM (PT/[facility]) PT/SEC[facility] TO PROVIDE STAIR TRAINING BED TRANSFERS (PT/SEC[facility]ITY [facility]) SIT TO/FROM STAND TRANSFERS (PT/SEC[facility]ITY [facility]) CHAIR TRANSFERS (PT/SEC[facility]ITY [facility]) PT / [facility] TO MONITOR AND EDUCATE ON OXYGEN SATURATION DURING ADLS/IADLS, NOTIFY PHYSICIAN AND/OR THE RN CLINICAL CUSTOMER SERVICES COORDINATOR FOR PHYSICIAN NOTIFICATION AND IF O2 SATS BELOW PHYSICIAN ORDERED PARAMETERS AFTER 10 MIN OF REST PT / SECURITY CHIEF MUSEUM TO MONITOR FOR SIGNS AND SYMPTOMS OF UTI AND EDUCATE CAREGIVER TO MINIMIZE RISK OF DEVELOPING A UTI. PT/SECURITY CHIEF MUSEUM TO IDENTIFY FALL RISK FACTORS; EDUCATE THE PATIENT/CAREGIVER ON WAYS TO REDUCE FALL RISK FACTORS AND ESTABLISH HOME EXERCISE PROGRAM TO MINIMIZE FALL RISK. MAY TEACH THE PATIENT FLOOR RECOVERY WHEN CLINICALLY APPROPRIATE] Goal 2023-12-17 Patient Goal - UNABLE TO STA TE Goal Provider Goal - PATIENT/CAREGIVER TO VERBALIZE, AND CONSISTENTLY DEMONSTRATE EFFECTIVE, SAFE MANAGEMENT OF MEDICATION INCLUDING KNOWLEDGE OF EFFECTIVENESS, POTENTIAL SIDE EFFECTS AND DRUG REACTIONS AND WHEN TO CONTACT THE APPROPRIATE CARE PROVIDER. PATIENT/CAREGIVER WILL BE ABLE TO VERBALIZE UNDERSTANDING OF MEDICATION REGIMEN AND ACCURATELY TAKE MEDICATIONS PRESCRIBED WITHOUT ADVERSE EFFECTS BY 10/17/23 Goal Provider Goal - PATIENT/CAREGIVER ABLE TO IDENTIFY FALL RISK FACTORS AND IMPLEMENT STRATEGIES TO MINIMIZE FALL RISK. PATIENT/CAREGIVER WILL VERBALIZE/DEMONSTRATE AN ABILITY TO ADHERE TO FALL REDUCTION SELF MANAGEMENT AND LIFE-STYLE CHANGES AT DISCHARGE. PERSONAL GOAL(S) STATED BY PATIENT/CAREGIVER WILL BE MET BY 12/18/23 Goal Provider Goal - PATIENT / CAREGIVER WILL VERBALIZE/DEMONSTRATE UNDERSTANDING OF MEASURES TO MANAGE ALTERED NEUROLOGICAL STATUS BY EOE. Goal Provider Goal - PATIENT/CAREGIVER WILL VERBALIZE/DEMONSTRATE UNDERSTANDING OF CARE AND MANAGEMENT OF PARKINSON'S DISEASE BY EOE Goal Provider Goal - A PLAN OF CARE WILL BE ESTABLISHED THAT MEETS THE PATIENTS NEEDS. PATIENT WILL DEMONSTRATE OXYGEN SATURATION WITHIN NORMAL LIMITS OR PATIENTS OPTIMAL LEVEL ESTABLISHED BY THE PHYSICIAN THROUGHOUT CARE. CHANGES TO CO-MORBID CONDITIONS AND ANY NEW CONDITIONS WILL BE IDENTIFIED AND REPORTED TO THE PHYSICIAN. Goal Provider Goal - FAMILY / CAREGIVERS WILL VERBALIZE/DEMONSTRATE DEMENTIA MANAGEMENT TECHNIQUES BY END OF EPISODE. Goal Provider Goal - PATIENT / CAREGIVER WILL VERBALIZE / DEMONSTRATE UNDERSTANDING OF PAIN CONTROL MEASURES BY 12/18/23 Goal Provider Goal - PATIENT/CAREGIVER WILL VERBALIZE UNDERSTANDING OF SIGNS AND SYMPTOMS THAT PUT THE PATIENT AT RISK FOR HOSPITALIZATION /EMERGENCY ROOM VISITS, WHEN TO NOTIFY NURSE/PHYSICIAN OF COMPLICATIONS/DECLINE AND WHEN TO CALL 911. Goal Provider Goal - PATIENT / CAREGIVER WILL VERBALIZE/DEMONSTRATE UNDERSTANDING OF MEASURES TO MANAGE ALTERED CARDIOVASCULAR STATUS BY 12/18/23 Goal Provider Goal - OT STG: PATIENT WILL DEMONSTRATE IMPROVED ABILITY TO PERFORM PERSONAL HYGIENE FROM MIN A TO SBA WITHIN 4 WEEKS OT STG: PATIENT WILL DEMONSTRATE IMPROVED ABILITY TO PERFORM TOILET TRANSFER FROM MIN A TO MODIFIED INDEPENDENT WITHIN 5 WEEKS OT STG: PATIENT WILL DEMONSTRATE IMPROVED ABILITY TO PERFORM /LB DRESSING FROM MAX A TO MIN A WITHIN 5 WEEKS OT LTG: PATIENT WILL DEMONSTRATE IMPROVED INDEPENDENCE WITH ACTIVITIES OF DAILY LIVING (ADL) SKILLS EVIDENCED BY AN IMPROVEMENT IN MODIFIED GINNA INDEX SCORE FROM 63 /100 TO 73/100 INDICATING DECREASED DEPENDENCY ON CAREGIVER ASSISTANCE WITHIN 5 WEEKS. OT LTG: PATIENT WILL DEMONSTRATE THE ABILITY TO COMPLETE LIGHT SNACK AND BEVERAGE PREPARATION FROM MAX A TO SUPERVISION UTILIZING ADAPTIVE EQUIPMENT NEEDED IN INCORPORATING WORK SIMPLIFICATION TECHNIQUES INTO TASK WITHIN 5 WEEKS OT LTG: PATIENT WILL DEMONSTRATE DECREASED FALL RISK EVIDENCED BY AN IMPROVEMENT IN FUNCTIONAL REACH SCORE FROM 6 INCHES TO 8 INCHES FOR IMPROVED ADL/IADL COMPLETION AND HOME SAFETY BY DISCHARGE WITHIN 5 WEEKS OT LTG: PATIENT WILL DEMONSTRATE IMPROVED UE MUSCLE STRENGTH EVIDENCED BY AN IMPROVEMENT IN MMT/FUNCTIONAL STRENGTH FROM 3+ TO 4- /5 IN ORDER TO PERFORM ADLS MORE INDEPENDENTLY AND BE MIN A WITH HEP WITHIN 5 WEEKS OT LTG: PATIENT WILL DEMONSTRATE THE ABILITY TO COMPLETE PERSONAL SAFETY AND EMERGENCY MANAGEMENT PROCEDURES FROM MAX TO MOD A WITHIN 5 WEEKS. OT LTG: PATIENT WILL DEMONSTRATE UNDERSTANDING OF ENERGY CONSERVATION MEASURES, EVIDENCED BY INCREASED ACTIVITY TOLERANCE FROM 3 MINUTES TO 7 MINUTES DURING A FUNCTIONAL TASK WITHIN 5 WEEKS. OT LTG: PATIENT WILL MAINTAIN OXYGEN SATURATION WITHIN PHYSICIAN ORDERED PARAMETERS THROUGHOUT THE EPISODE OF CARE. OT LTG: PATIENT/CAREGIVER WILL BE ABLE TO IMPLEMENT RECOMMENDATIONS SPECIFIC TO FALL REDUCTION FOR IMPROVED ADL/IADL COMPLETION AND HOME SAFETY BY END OF EPISODE. Goal Provider Goal - PT STG: PATIENT WILL DEMONSTRATE IMPROVED TRANSFERS FROM MIN A TO INDEPENDENT WITHIN 5 WEEKS. PT LTG: PATIENT WILL DEMONSTRATE IMPROVED AMBULATION FROM MIN A TO INDEPENDENT WITHIN 9 WEEKS PT LTG: PATIENT WILL DEMONSTRATE IMPROVE STAIR SKILLS FROM MINIMAL ASSISTANCE TO SUPERVISION WITHIN 9 WEEKS TO ALLOW PATIENT TO GET TO AND FROM CAR. PT LTG: PATIENT WILL DEMONSTRATE REDUCED FALL RISK EVIDENCED BY IMPROVED SELF- SELECTED WALKING SPEED (SSWS CUT SCORE 0.6 TO 0.9 INDICATES MODERATE FALL RISK, 0.6 M/S INDICATES HIGH FALL RISK) FROM 0.4 TO 0.7 WITHIN 9 WEEKS. PT LTG: PATIENT WILL DEMONSTRATE REDUCED FALL RISK EVIDENCED BY TUG TEST (CUT SCORE >11 SECONDS INDICATES INCREASED FALL RISK) IMPROVING FROM UNABLE TO 11 WITHIN 9 WEEKS. PT LTG: PATIENT WILL DEMONSTRATE IMPROVED FUNCTIONAL STRENGTH EVIDENCED BY FIVE TIMES SIT TO STAND TEST (CUT SCORE >12 SECONDS INDICATES AN INCREASED FALL RISK) IMPROVING FROM UNABLE TO 12 WITHIN 9 WEEKS. PT LTG: PATIENT WILL DEMONSTRATE INCREASED STRENGTH OF BILAT LES FROM 3+ TO 4/5 WITHIN 9 WEEKS IN ORDER TO RETURN TO INDEPENDENT TRANSFER AND AMBULATION SKILLS. PT STG: PATIENT WILL DEMONSTRATE IMPROVED ABILITY TO PERFORM BED TRANSFERS IN ORDER TO REDUCE RISK OF SKIN BREAKDOWN FROM SBA TO INDEPENDENT WITHIN 5 WEEKS. PT STG: PATIENT WILL DEMONSTRATE IMPROVED TRANSFERS FROM MIN A TO INDEPENDENT WITHIN 5 WEEKS. PT LTG: PATIENT WILL DEMONSTRATE IMPROVED AMBULATION FROM MIN A TO INDEPENDENT WITHIN 9 WEEKS PT LTG: PATIENT WILL DEMONSTRATE IMPROVE STAIR SKILLS FROM MINIMAL ASSISTANCE TO SUPERVISION WITHIN 9 WEEKS TO ALLOW PATIENT TO GET TO AND FROM CAR. PT LTG: PATIENT WILL DEMONSTRATE REDUCED FALL RISK EVIDENCED BY IMPROVED SELF- SELECTED WALKING SPEED (SSWS CUT SCORE 0.6 TO 0.9 INDICATES MODERATE FALL RISK, 0.6 M/S INDICATES HIGH FALL RISK) FROM 0.4 TO 0.7 WITHIN 9 WEEKS. PT LTG: PATIENT WILL DEMONSTRATE REDUCED FALL RISK EVIDENCED BY TUG TEST (CUT SCORE >11 SECONDS INDICATES INCREASED FALL RISK) IMPROVING FROM UNABLE TO 11 WITHIN 9 WEEKS. PT LTG: PATIENT WILL DEMONSTRATE IMPROVED FUNCTIONAL STRENGTH EVIDENCED BY FIVE TIMES SIT TO STAND TEST (CUT SCORE >12 SECONDS INDICATES AN INCREASED FALL RISK) IMPROVING FROM UNABLE TO 12 WITHIN 9 WEEKS. PT LTG: PATIENT WILL DEMONSTRATE INCREASED STRENGTH OF BILAT LES FROM 3+ TO 4/5 WITHIN 9 WEEKS IN ORDER TO RETURN TO INDEPENDENT TRANSFER AND AMBULATION SKILLS. PT STG: PATIENT WILL DEMONSTRATE IMPROVED ABILITY TO PERFORM BED TRANSFERS IN ORDER TO REDUCE RISK OF SKIN BREAKDOWN FROM SBA TO INDEPENDENT WITHIN 5 WEEKS. PT LTG: PATIENT WILL MAINTAIN OXYGEN SATURATION WITHIN PHYSICIAN ORDERED PARAMETERS THROUGHOUT EPISODE OF CARE. PT GOAL: PATIENT WILL NOT EXHIBIT SIGNS AND SYMPTOMS OF UTI. PT LTG: PATIENT/CAREGIVER WILL DEMONSTRATE ADHERENCE TO FALL REDUCTION SELF-MANAGEMENT AND REDUCING FALL RISK FACTORS TO MINIMIZE FALL RISK BY END OF EPISODE . PT LTG: CAREGIVER WILL BE INDEPENDENT ASSISTING PATIENT TO COMPLETE HEP WITHIN 5 WEEKS. Reason for Visit INDEPENDENT WITH USE OF ASSISTIVE DEVICE Encounters Start Date/Time End Date/Time Encounter Type Admission Type Attending [facility] Care Facility Care Department Encounter ID Discharge Date Discharge Status Discharge Condition Discharge Reason Percent Goals Met 2023-10-20 00:00:00 2023-12-17 00:00:00 Outpatient [facility] [id number] 2023-12-17 00:00:00 DISCHARGE TO HOME OR SELF CARE INDEPENDEN T WITH USE OF ASSISTIVE DEVICE HH OR PAL- GOALS MET 100.00
== END 2024-02-27 16:07 | disposition home or self-care (01) ==
PROVIDERS: PCP Internal Medicine; Visit Provider Psychiatry & Neurology Neurology
DX: F03.C2 Unspecified dementia, severe, with psychotic disturbance (principal); G25.3 Myoclonus
CPT/HCPCS: 99442

== ENCOUNTER 2024-12-31 12:34 | Outpatient (AMB) | payer MEDICARE, SELFPAY ==
--- NOTE | 2024-12-31 12:48 | MHC.OFFVIS ---
Vital Signs 12/31/24 12:49 Height 5 ft 4 in Weight 169 lb 8 oz BMI 29.1 BP 142/72 H Blood Pressure Location Lt brachial Position Sitting Pulse 72 Pulse Source Pulse Oximeter Pulse Oximetry (%) 98 Oxygen Delivery Method Room Air Intake Visit Reasons: Follow up [employer] Required: No Accompanied by: Spouse and son-Blake Allergies No Known Allergies Allergy (Verified 12/31/24 12:56) HPI Comments Details: 89 y/o female patient with Dementia and catatonic depression calls for follow up.Her Dylon helps with history today. she is doing OK.Her memory is stable .she reports bad dreams at night and has lot of twitching of her legs at night she is dependant on most ADLS. has home pT and nursing with [facility] . Her psychiatrist ( Dr. Joseph) Olanzepine was stopped 3 mths ago . her mood is stable . she is on gabapentin which helps with her abnormal twitching but she is sleeping a lot. Her cognition is good as per her .she has home health aide to help with her ADLs. Pt tried memantine but it caused her very sleepy and not tolerated well. [facility] Medical History Myoclonus Episode of shaking Hyperlipidemia HTN (hypertension) Anxiety CVA (cerebral vascular accident) Major depressive disorder, recurrent, with catatonic features Dementia Surgical History History of cataract surgery Family History Family/Other HTN (hypertension) Family/Other Breast cancer HTN (hypertension) Thyroid disease Family/Other Uterine cancer Father Throat cancer Social History Alcohol intake: never Patient Tobacco Use Status: Never used Tobacco Physical Exam Vital Signs: Last Vital Signs Pulse 72 12/31/24 12:49 BP 142/72 H 12/31/24 12:49 Pulse Ox 98 12/31/24 12:49 Oxygen Delivery Method Room Air 12/31/24 12:49 BMI result Body Mass Index 29.1 Const General: cooperative, alert and awake Nutritional Appearance: average body habitus Orientation/consciousness: oriented to person, oriented to place and oriented to time HEENT Other: Hearing loss and uses hearing aids bilaterally. Neck Neck: Yes full ROM and Yes supple Resp Effort & Inspection: normal respiratory effort and able to speak in complete sentences Neuro Other: No tremors Mild decreased facial expression and blink General: oriented to person, oriented to place and oriented to time Cranial nerves: Yes Bilaterally intact EOM present, Yes Midline tongue present, Yes Symmetric palate elevation present, Yes Ability to bilaterally rotate head present and Yes Ability to bilaterally elevate shoulders present Motor exam (neuro): 5/5 motor strength present throughout, Pronator motor function not present and Normal motor muscle tone present throughout Psych Appearance: grossly normal Speech and movement: Clear speech present Affect: Blunted affect present Attitude: cooperative Assessment & Plan Assessment & Plan (1) Dementia: Comment: mixed with hallucinations- related to mood and vascular Code(s): F03.90 - Unspecified dementia, unspecified severity, without behavioral disturbance, psychotic disturbance, mood disturbance, and anxiety Category: Medical Qualifiers: Dementia type: unspecified type Dementia severity: severe Dementia behavioral or psychological symptom: with psychotic disturbance Qualified Code(s): F03.C2 - Unspecified dementia, severe, 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 Joseph for her depression and hallucinations Continue gabapentin 100mg qhs for abnormal movements - ? myoclonus ? 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
[2024-12-31 12:49] VITALS: BP 142/72; PULSE 72; O2SAT 98; BMI 29.1
== END 2024-12-31 14:09 | disposition home or self-care (01) ==
LOC: HO.HSMS 12:35
PROVIDERS: PCP Internal Medicine; Visit Provider Psychiatry & Neurology Neurology
DX: F03.C2 Unspecified dementia, severe, with psychotic disturbance (principal); G25.3 Myoclonus
CPT/HCPCS: 99214

== ENCOUNTER → 2024-12-31 12:34 | Outpatient (BNVA) | payer MEDICARE, SELFPAY | PROVIDERS: PCP Internal Medicine; Visit Provider Psychiatry & Neurology Neurology | DX: G25.3 Myoclonus (principal); F03.C2 Unspecified dementia, severe, with psychotic disturbance | CPT/HCPCS: 99212 ==